=== PATIENT | female | born 1945 | race Caucasian/White ===

== ENCOUNTER 2019-09-29 15:00 | Emergency (ER) | payer MEDICARE, OTHER, SELFPAY ==
[2019-09-29 15:14] VITALS: BP 140/70; PULSE 84; RESP 15; TEMP 36.9; O2SAT 95; BMI 23.0
[2019-09-29 15:25] VITALS: BP 165/68; PULSE 71; RESP 18; O2SAT 96
--- NOTE | 2019-09-29 15:29 | XRR_ITS ---
PROCEDURE INFORMATION: Exam: XR Chest, 1 View Exam date and time: 09/29/2019 4:11 PM Age: 74 years old Clinical indication: Other: Weakness; Additional info: Weak TECHNIQUE: Imaging protocol: XR of the chest Views: 1 view. COMPARISON: CR Chest 1 [place] [id number] 02/13/2016 9:03 PM FINDINGS: There is haziness in the retrocardiac region. This could represent infiltrate. A standard PA and lateral radiograph is recommended. The right lung is clear. There is no pleural effusion or pneumothorax. The heart size is normal. XR/XR chest 1V portable [id number] IMPRESSION: Haziness in the retrocardiac region. This could represent infiltrate. A standard PA and lateral radiograph is recommended when medically feasible
--- NOTE | 2019-09-29 15:29 | ECG_ITS ---
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 Measurements Intervals [place] Rate: 65 P: 75 ND: 164 QRS: -32 QRSD: 102 T: 38 QT: 425 QTc: 444 Interpretive Statements SINUS RHYTHM LEFT AXIS DEVIATION [QRS AXIS < -30] VOLTAGE CRITERIA FOR LVH [MEETS CRITERIA IN ONE OF: R(aVL), S(V1), R(V5), R(V5/V6)+S(V1)] NONSPECIFIC ST & T-WAVE ABNORMALITY Compared to ECG 02/13/2016 19:33:20 Left ventricular hypertrophy now present T-wave abnormality now present Myocardial infarct finding no longer present Electronically Signed On 09-29-2019 22:03:43 CDT by Erich Meeks M.D. [email or web address]/[id number] f
--- NOTE | 2019-09-29 15:30 | ED_ITS ---
Documented by User: Mary Kate Oliver MD 10/02/19 13:17 HPI - Weakness General: Chief complaint: Weakness Stated complaint: body aches, fatigue, weakness Time Seen by Provider: 09/29/19 15:23 Source: patient and RN notes reviewed History of Present Illness: HPI Narrative: 74-year-old female complains of acute onset of generalized weakness this morning just prior to arrival. She is usually very active and was taking a bath and could barely get out of the bathtub. She states her arms and legs just felt weak. No confusion no slurred speech no headache. No dysuria nausea vomiting or diarrhea. She has had no recent fever cough or cold symptoms no loss of taste or smell and no known exposure to anybody with COVID-19. MD Complaint: generalized weakness Associated symptoms: Denies chest pain, chills, easy bruising, fever(s), headache(s), nausea or vomiting Review of Systems General: Reports: 10 or more systems reviewed and unremarkable except in HPI and below Const: Denies: fever(s) or chills Eyes: Denies: change in vision ENMT: Denies: throat pain Card: Denies: chest pain Resp: Denies: dyspnea GI: Denies: abdominal pain, nausea, vomiting or change in bowel habits : Denies: difficulty voiding Musc: Denies: muscle weakness Skin/Breast: Denies: rash Neuro: Denies: headache(s) Psych: Denies: hopelessness or suicidal ideation Endo: Denies: polyuria [employer]/Lymph: Denies: easy bruising or easy bleeding All/Imm: Denies: urticaria PFSH ED PFSH: Social History (Updated 09/29/19 @ 15:21 by Rico Ponce RN) Smoking and tobacco status: never smoked Alcohol intake: never Substance/Drug Use: never Physical Exam Const: COMMON NORMALS: no acute distress, patient oriented x3, alert and well nourished OTHER: Appears younger than stated age HENMT: COMMON NORMALS: normocephalic and Normal external nose present HEAD & SCALP: normocephalic NOSE: Normal external nose present MOUTH: no trismus Eye: COMMON NORMALS: EOMs intact bilaterally and conjunctivae normal CONJUNCTIVA: Yes conjunctivae normal Neck/C-Spine: COMMON NORMALS: full ROM, no lymphadenopathy and supple CERVICAL SPINE: Yes cervical ROM normal Lymph: LYMPHATIC: no lymphadenopathy noted Resp: COMMON NORMALS: normal respiratory effort, No retractions, No use of accessory muscles and clear to auscultation bilaterally EFFORT & INSPECTION: Yes able to speak in complete sentences AUSCULTATION: clear to auscultation bilaterally Cardio: COMMON NORMALS: regular rate and regular rhythm RATE: regular rate RHYTHM: regular rhythm GI: COMMON NORMALS: Normal to inspection, nondistended, normoactive bowel sounds present, Soft to palpation, non-tender and no masses INSPECTION: Yes normal to inspection AUSCULTATION: Yes normoactive bowel sounds PALPATION: Yes Soft to palpation, No Guarding due to palpation present (GI) and No Rigid due to palpation Back/Pelvis: OTHER: Normal range of motion Extremity: GENERAL: Yes normal exam except as noted Neuro: COMMON NORMALS: patient oriented x3 and CN's II-XII intact bilaterally SENSORIUM/ORIENTATION: Yes alert SPEECH: speech normal Psych: COMMON NORMALS: mental status grossly normal Skin: COMMON NORMALS: no rashes or lesions noted GENERAL SKIN EXAM: no rashes or lesions noted Course Vital Signs: Vital signs: Vital Signs Temperature 98.9 F 09/29/19 18:48 Pulse Rate 71 09/29/19 18:48 Respiratory Rate 16 09/29/19 18:48 Blood Pressure 179/73 09/29/19 18:48 Pulse Oximetry 97 09/29/19 18:48 MDM - Weakness MDM Narrative: Medical decision making narrative: Acute onset generalized weakness just prior to arrival today. Initial EKG is unremarkable. First troponin is 9 will need second troponin still awaiting urine. She denies any chest pain pressure heaviness or other symptoms usually associated with [place] Lab Data: Attestation: I reviewed the patient's lab results. Labs: Lab Results 09/29/19 09/29/19 09/29/19 Range/Units 15:34 15:34 15:34 WBC 5.7 (4.0-10.0) 10^3/ uL RBC 4.26 (4.1-5.3) 10^6/u L Hgb 12.9 (11.5-15.3) g/dL Hct 39.8 (37.0-47.0) % MCV 93.4 (81-99) fL MCH 30.3 (28.0-34.0) pg MCHC 32.4 (30.0-36.0) g/dL RDW 11.0 L (12.1-15.1) % Plt Count 238 (130-400) 10^3/c mm MPV 10.3 (7.4-10.4) fL Neut % (Auto) 59.0 % Lymph % (Auto) 32.4 % Thayer % (Auto) 8.0 % Eos % (Auto) 0.2 % Baso % (Auto) 0.2 % Neut # (Auto) 3.39 (1.8-7.7) 10^3/u L Lymph # (Auto) 1.9 (0.8-4.8) 10^3/u L Thayer # (Auto) 0.5 (0.2-0.9) 10^3/u L Eos # (Auto) 0.0 (0.0-0.8) 10^3/u L Baso # (Auto) 0.0 (0.0-0.1) 10^3/u L Nucleated RBC % (a uto) 0 % Nucleated RBCs # 0.0 /100WBC Sodium 140 (136-145) mmol/L Potassium 3.2 L (3.5-5.1) mmol/L Chloride 101 (98-107) mmol/L Carbon Dioxide 28 (22-29) mmol/L Anion Gap 14.2 (5-19) BUN 21 (8-23) mg/dL Creatinine 0.8 (0.5-0.9) mg/dL Glucose 166 H (65-115) mg/dL Calculated Osmolal ity 290 (285-295) mOsm/k g Calcium 9.1 (8.5-10.5) mg/dL Magnesium (1.7-2.3) mg/dL Total Bilirubin 0.4 (0.15-1.2) mg/dL AST 19 (0-32) U/L ALT 12 (0-33) U/L Alkaline Phosphata se 76 (35-105) IU/L Troponin T Gen 5 n g/L 9 (0-10) ng/L Troponin T 120 Min deering (0-10) ng/L Delta Troponin T (0-10) ABS# Total Protein 7.2 (6.6-8.7) g/dL Albumin 4.2 (3.5-5.2) g/dL Globulin 3.0 (1.3-4.6) g/dL Urine Color (Yellow) Urine Appearance (CLEAR) Urine pH (5-7) Ur Specific Gravit y (1.005-1.030) Urine Protein (Negative) Urine Glucose (UA) (Normal) Urine Ketones (Negative) Urine Blood (Negative) Urine Nitrate (Negative) Urine Bilirubin (NEGATIVE) Urine Urobilinogen (Negative) mg/dL Ur Leukocyte Isabel ase (Negative) Urine RBC (0-2) /hpf Urine WBC (0-5) /hpf Ur Squamous Epith Cells (0-5) Amorphous Sediment Urine Bacteria (NONE) Urine Mucus 09/29/19 09/29/19 09/29/19 Range/Units 15:57 17:16 17:16 WBC (4.0-10.0) 10^3/ uL RBC (4.1-5.3) 10^6/u L Hgb (11.5-15.3) g/dL Hct (37.0-47.0) % MCV (81-99) fL MCH (28.0-34.0) pg MCHC (30.0-36.0) g/dL RDW (12.1-15.1) % Plt Count (130-400) 10^3/c mm MPV (7.4-10.4) fL Neut % (Auto) % Lymph % (Auto) % Thayer % (Auto) % Eos % (Auto) % Baso % (Auto) % Neut # (Auto) (1.8-7.7) 10^3/u L Lymph # (Auto) (0.8-4.8) 10^3/u L Thayer # (Auto) (0.2-0.9) 10^3/u L Eos # (Auto) (0.0-0.8) 10^3/u L Baso # (Auto) (0.0-0.1) 10^3/u L Nucleated RBC % (a uto) % Nucleated RBCs # /100WBC Sodium (136-145) mmol/L Potassium (3.5-5.1) mmol/L Chloride (98-107) mmol/L Carbon Dioxide (22-29) mmol/L Anion Gap (5-19) BUN (8-23) mg/dL Creatinine (0.5-0.9) mg/dL Glucose (65-115) mg/dL Calculated Osmolal ity (285-295) mOsm/k g Calcium (8.5-10.5) mg/dL Magnesium 1.9 (1.7-2.3) mg/dL Total Bilirubin (0.15-1.2) mg/dL AST (0-32) U/L ALT (0-33) U/L Alkaline Phosphata se (35-105) IU/L Troponin T Gen 5 n g/L (0-10) ng/L Troponin T 120 Min deering 7.61 (0-10) ng/L Delta Troponin T -1.39 L (0-10) ABS# Total Protein (6.6-8.7) g/dL Albumin (3.5-5.2) g/dL Globulin (1.3-4.6) g/dL Urine Color Yellow (Yellow) Urine Appearance Sl hazy (CLEAR) Urine pH 5 (5-7) Ur Specific Gravit y 1.005 (1.005-1.030) Urine Protein Neg (Negative) Urine Glucose (UA) Norm (Normal) Urine Ketones Negative (Negative) Urine Blood Neg (Negative) Urine Nitrate Negative (Negative) Urine Bilirubin Neg (NEGATIVE) Urine Urobilinogen Norm (Negative) mg/dL Ur Leukocyte Isabel ase 2+ H (Negative) Urine RBC None (0-2) /hpf Urine WBC 15-25 H (0-5) /hpf Ur Squamous Epith Cells 15-25 H (0-5) Amorphous Sediment Not Reportable Urine Bacteria 2+ H (NONE) Urine Mucus 1+ Imaging Data^: CXR: Attestation: I personally reviewed and interpreted this imaging study as follows: My impression: No change from prior study normal EKG Data^: EKG 1: Attestation: I personally reviewed and interpreted this EKG as follows: EKG interpretation date: 09/29/19 EKG interpretation time: 15:46 Interpretation: Sinus rhythm rate 65 left axis deviation, nonspecific ST changes Discharge Plan Discharge Patient Disposition: Home, Self-Care Clinical Impression: Spell of generalized weakness Condition: Stable Prescriptions: New cefdinir 300 mg capsule 300 mg PO Q12H 10 Days Qty: 20 RF: 0 No Action Aspir-81 81 mg Tablet,Delayed Release (Dr/Ec) See Rx Instructions .ROUTE .COMPLEX RF: 0 alprazolam 0.5 mg tablet 0.5 mg PO TID PRN (Reason: unknown) RF: 0 amlodipine 10 mg tablet 5 mg PO DAILY RF: 0 lisinopril 10 mg tablet 10 mg PO BID RF: 0 metoprolol succinate 25 mg tablet extended release 24 hr 25 mg PO BID RF: 0 potassium gluconate 595 mg (99 mg) Tablet 595 mg PO DAILY RF: 0 lysine See Rx Instructions .ROUTE .COMPLEX RF: 0 magnesium 1 tab PO DAILY RF: 0 Discharge Orders: Discharge Order (Routine); Ordered 09/29/19 Ordered By: Selene Cronin Referrals: David Carter Jr, MD [Primary Care Provider] - 1-3 days Discharge Diet: Advance as tolerated Discharge Activity: Increase activity as tolerated Patient Instructions: Weakness (Generalized) Activity Restrictions/Additional Instructions: Please return to the ER immediately for any of the signs or symptoms listed on your discharge instruction sheets, worsening/changing of your symptoms, you are not getting better as quickly as expected, or for ANY other cause or concerns. A definite cause for your spell of generalized weakness has not been determined. If your symptoms return or you develop any new symptoms please return to the ER immediately for recheck. Try to get into see Dr. Carter sooner than your already scheduled appointment. Discharge Date/Time: 09/29/19 18:52 Sign Out Sign Out Data: Patient Sign Out occurred on 09/29/19 at 17:16. Patient's care was discussed, and care was transferred from Mary Kate Oliver MD to Selene Cronin. 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 Comprehensive Documented by User: Selene Cronin 09/29/19 18:35 HPI - Weakness General: Chief complaint: Weakness Stated complaint: body aches, fatigue, weakness Time Seen by Provider: 09/29/19 15:23 PFSH ED PFSH: Social History (Updated 09/29/19 @ 15:21 by Rico Ponce RN) Smoking and tobacco status: never smoked Alcohol intake: never Substance/Drug Use: never Course Vital Signs: Vital signs: Vital Signs Temperature 98.9 F 09/29/19 18:48 Pulse Rate 71 09/29/19 18:48 Respiratory Rate 16 09/29/19 18:48 Blood Pressure 179/73 09/29/19 18:48 Pulse Oximetry 97 09/29/19 18:48 MDM - Weakness MDM Narrative: Medical decision making narrative: 1814 -patient is completely asymptomatic at this time. She states her symptoms have completely resolved and she is ready to go home. I reviewed with her and other than a period of generalized weakness that resolved I cannot determine what her symptoms could be caused by. Her urine is contaminated but she does not have symptoms such as urinary frequency, urgency or dysuria. She has no back pain or chest pain. She has no headache, fever, cough, shortness of breath or any other focal symptom. The patient understands that this still could be something serious and she will need to be careful and try to stay out of the heat and keep cool. She agrees to try to get an appointment with Dr. Lizarraga for sooner than the as scheduled and she will also take the medication for a possible UTI as she really does not want to have a catheterized specimen performed. She agrees to return should her symptoms return or she develop any new symptoms. At this time though the patient has been up and walking the halls here and feels good and wants to be discharged. The patient has been warned but she is also been welcomed to return. Lab Data: Labs: Lab Results 09/29/19 09/29/19 09/29/19 Range/Units 15:34 15:34 15:34 WBC 5.7 (4.0-10.0) 10^3/ uL RBC 4.26 (4.1-5.3) 10^6/u L Hgb 12.9 (11.5-15.3) g/dL Hct 39.8 (37.0-47.0) % MCV 93.4 (81-99) fL MCH 30.3 (28.0-34.0) pg MCHC 32.4 (30.0-36.0) g/dL RDW 11.0 L (12.1-15.1) % Plt Count 238 (130-400) 10^3/c mm MPV 10.3 (7.4-10.4) fL Neut % (Auto) 59.0 % Lymph % (Auto) 32.4 % Thayer % (Auto) 8.0 % Eos % (Auto) 0.2 % Baso % (Auto) 0.2 % Neut # (Auto) 3.39 (1.8-7.7) 10^3/u L Lymph # (Auto) 1.9 (0.8-4.8) 10^3/u L Thayer # (Auto) 0.5 (0.2-0.9) 10^3/u L Eos # (Auto) 0.0 (0.0-0.8) 10^3/u L Baso # (Auto) 0.0 (0.0-0.1) 10^3/u L Nucleated RBC % (a uto) 0 % Nucleated RBCs # 0.0 /100WBC Sodium 140 (136-145) mmol/L Potassium 3.2 L (3.5-5.1) mmol/L Chloride 101 (98-107) mmol/L Carbon Dioxide 28 (22-29) mmol/L Anion Gap 14.2 (5-19) BUN 21 (8-23) mg/dL Creatinine 0.8 (0.5-0.9) mg/dL Glucose 166 H (65-115) mg/dL Calculated Osmolal ity 290 (285-295) mOsm/k g Calcium 9.1 (8.5-10.5) mg/dL Magnesium (1.7-2.3) mg/dL Total Bilirubin 0.4 (0.15-1.2) mg/dL AST 19 (0-32) U/L ALT 12 (0-33) U/L Alkaline Phosphata se 76 (35-105) IU/L Troponin T Gen 5 n g/L 9 (0-10) ng/L Troponin T 120 Min deering (0-10) ng/L Delta Troponin T (0-10) ABS# Total Protein 7.2 (6.6-8.7) g/dL Albumin 4.2 (3.5-5.2) g/dL Globulin 3.0 (1.3-4.6) g/dL Urine Color (Yellow) Urine Appearance (CLEAR) Urine pH (5-7) Ur Specific Gravit y (1.005-1.030) Urine Protein (Negative) Urine Glucose (UA) (Normal) Urine Ketones (Negative) Urine Blood (Negative) Urine Nitrate (Negative) Urine Bilirubin (NEGATIVE) Urine Urobilinogen (Negative) mg/dL Ur Leukocyte Isabel ase (Negative) Urine RBC (0-2) /hpf Urine WBC (0-5) /hpf Ur Squamous Epith Cells (0-5) Amorphous Sediment Urine Bacteria (NONE) Urine Mucus 09/29/19 09/29/19 09/29/19 Range/Units 15:57 17:16 17:16 WBC (4.0-10.0) 10^3/ uL RBC (4.1-5.3) 10^6/u L Hgb (11.5-15.3) g/dL Hct (37.0-47.0) % MCV (81-99) fL MCH (28.0-34.0) pg MCHC (30.0-36.0) g/dL RDW (12.1-15.1) % Plt Count (130-400) 10^3/c mm MPV (7.4-10.4) fL Neut % (Auto) % Lymph % (Auto) % Thayer % (Auto) % Eos % (Auto) % Baso % (Auto) % Neut # (Auto) (1.8-7.7) 10^3/u L Lymph # (Auto) (0.8-4.8) 10^3/u L Thayer # (Auto) (0.2-0.9) 10^3/u L Eos # (Auto) (0.0-0.8) 10^3/u L Baso # (Auto) (0.0-0.1) 10^3/u L Nucleated RBC % (a uto) % Nucleated RBCs # /100WBC Sodium (136-145) mmol/L Potassium (3.5-5.1) mmol/L Chloride (98-107) mmol/L Carbon Dioxide (22-29) mmol/L Anion Gap (5-19) BUN (8-23) mg/dL Creatinine (0.5-0.9) mg/dL Glucose (65-115) mg/dL Calculated Osmolal ity (285-295) mOsm/k g Calcium (8.5-10.5) mg/dL Magnesium 1.9 (1.7-2.3) mg/dL Total Bilirubin (0.15-1.2) mg/dL AST (0-32) U/L ALT (0-33) U/L Alkaline Phosphata se (35-105) IU/L Troponin T Gen 5 n g/L (0-10) ng/L Troponin T 120 Min deering 7.61 (0-10) ng/L Delta Troponin T -1.39 L (0-10) ABS# Total Protein (6.6-8.7) g/dL Albumin (3.5-5.2) g/dL Globulin (1.3-4.6) g/dL Urine Color Yellow (Yellow) Urine Appearance Sl hazy (CLEAR) Urine pH 5 (5-7) Ur Specific Gravit y 1.005 (1.005-1.030) Urine Protein Neg (Negative) Urine Glucose (UA) Norm (Normal) Urine Ketones Negative (Negative) Urine Blood Neg (Negative) Urine Nitrate Negative (Negative) Urine Bilirubin Neg (NEGATIVE) Urine Urobilinogen Norm (Negative) mg/dL Ur Leukocyte Isabel ase 2+ H (Negative) Urine RBC None (0-2) /hpf Urine WBC 15-25 H (0-5) /hpf Ur Squamous Epith Cells 15-25 H (0-5) Amorphous Sediment Not Reportable Urine Bacteria 2+ H (NONE) Urine Mucus 1+ EKG Data^: EKG 2: Attestation: I personally reviewed and interpreted this EKG as follows: EKG interpretation date: 09/29/19 EKG interpretation time: 17:47 Interpretation: Normal sinus rhythm at 65 beats a minute, nonspecific ST and T wave changes, unchanged from previous. Discharge Plan Discharge Patient Disposition: Home, Self-Care Clinical Impression: Spell of generalized weakness Condition: Stable Prescriptions: New cefdinir 300 mg capsule 300 mg PO Q12H 10 Days Qty: 20 RF: 0 No Action Aspir-81 81 mg Tablet,Delayed Release (Dr/Ec) See Rx Instructions .ROUTE .COMPLEX RF: 0 alprazolam 0.5 mg tablet 0.5 mg PO TID PRN (Reason: unknown) RF: 0 amlodipine 10 mg tablet 5 mg PO DAILY RF: 0 lisinopril 10 mg tablet 10 mg PO BID RF: 0 metoprolol succinate 25 mg tablet extended release 24 hr 25 mg PO BID RF: 0 potassium gluconate 595 mg (99 mg) Tablet 595 mg PO DAILY RF: 0 lysine See Rx Instructions .ROUTE .COMPLEX RF: 0 magnesium 1 tab PO DAILY RF: 0 Discharge Orders: Discharge Order (Routine); Ordered 09/29/19 Ordered By: Selene Cronin Referrals: David Carter Jr, MD [Primary Care Provider] - 1-3 days Discharge Diet: Advance as tolerated Discharge Activity: Increase activity as tolerated Patient Instructions: Weakness (Generalized) Activity Restrictions/Additional Instructions: Please return to the ER immediately for any of the signs or symptoms listed on your discharge instruction sheets, worsening/changing of your symptoms, you are not getting better as quickly as expected, or for ANY other cause or concerns. A definite cause for your spell of generalized weakness has not been determined. If your symptoms return or you develop any new symptoms please return to the ER immediately for recheck. Try to get into see Dr. Carter sooner than your already scheduled appointment. Discharge Date/Time: 09/29/19 18:52 Sign Out Sign Out Data: Patient Sign Out occurred on 09/29/19 at 17:16. Patient's care was discussed, and care was transferred from Mary Kate Oliver MD to Selene Cronin. 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 Comprehensive
[2019-09-29 15:43] LABS: Basophils % 0.2 %; Eosinophils % 0.2 %; Hematocrit 39.8 % (37.0-47.0); Hemoglobin 12.9 g/dL (11.5-15.3); Lymphocytes # 1.9 10^3/uL (0.8-4.8); Lymphocytes % 32.4 %; Mean Corpuscular HGB Conc 32.4 g/dL (30.0-36.0); Mean Corpuscular Hemoglobin 30.3 pg (28.0-34.0); Mean Corpuscular Volume 93.4 fL (81-99); Mean Platelet Volume 10.3 fL (7.4-10.4); Monocytes # 0.5 10^3/uL (0.2-0.9); Neutrophils # 3.39 10^3/uL (1.8-7.7); Nucleated Red Blood Cells % 0 %; Platelet Count 238 10^3/cmm (130-400); Red Blood Count 4.26 10^6/uL (4.1-5.3); White Blood Count 5.7 10^3/uL (4.0-10.0)
[2019-09-29 16:21] LABS: Troponin T (5th) Once 9 ng/L (0-10)
[2019-09-29 16:22] LABS: Alanine Aminotransferase 12 U/L (0-33); Albumin Level 4.2 g/dL (3.5-5.2); Alkaline Phosphatase 76 IU/L (35-105); Anion Gap 14.2 (5-19); Aspartate Amino Transferase 19 U/L (0-32); Blood Urea Nitrogen 21 mg/dL (8-23); Calcium 9.1 mg/dL (8.5-10.5); Carbon Dioxide 28 mmol/L (22-29); Chloride 101 mmol/L (98-107); Glucose 166 mg/dL (65-115); Osmolality Calculated 290 mOsm/kg (285-295); Potassium 3.2 mmol/L (3.5-5.1); Sodium 140 mmol/L (136-145); Total Bilirubin 0.4 mg/dL (0.15-1.2); Total Protein 7.2 g/dL (6.6-8.7)
[2019-09-29] MEDS: sodium chloride 0.9% 1,000 ML 999 ML IV (16:31)
[2019-09-29 16:36] VITALS: BP 168/70; PULSE 68; RESP 16; O2SAT 97
[2019-09-29 17:17] LABS: Bilirubin Urine Neg (NEGATIVE); Blood Urine Neg (Negative); Glucose Urine UA Norm (Normal); Ketones Urine Negative (Negative); Nitrate Urine Negative (Negative); Protein Urine Neg (Negative); Specific Gravity, Urine 1.005 (1.005-1.030); Urine Appearance SL Hazy (CLEAR); Urine Color Yellow (Yellow); pH Urine 5 (5-7)
[2019-09-29 17:18] LABS: Add Urine Microscopic? YES; Leukocyte Esterase Urine 2+ (Negative); Urobilinogen Urine Norm (Negative)
[2019-09-29 17:21] LABS: Add Urine Culture? No; Bacteria Urine 2+; Mucus Urine 1+; Squamous Epithelial Cell Urine 15-25 (0-5); WBC Urine 15-25 /hpf (0-5)
[2019-09-29 17:23] VITALS: BP 177/77; BP 182/73; BP 186/76; PULSE 71
[2019-09-29] MEDS: potassium chloride ER 10 mEq Tablet 40 MEQ PO (17:33)
[2019-09-29 17:47] VITALS: BP 186/76; PULSE 65; RESP 18; O2SAT 96
[2019-09-29 17:47] LABS: Magnesium 1.9 mg/dL (1.7-2.3)
[2019-09-29 17:48] LABS: Troponin 5 2HR 7.61 ng/L (0-10)
[2019-09-29 18:39] LABS: Troponin 5 2HR Delta -1.39 ABS# (0-10)
--- NOTE | 2019-09-29 18:39 | ECG_ITS ---
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 Measurements Intervals [place] Rate: 65 P: 91 VA: 168 QRS: -6 QRSD: 100 T: 67 QT: 403 QTc: 421 Interpretive Statements SINUS RHYTHM WITH SINUS ARRHYTHMIA NONSPECIFIC ST & T-WAVE ABNORMALITY Compared to ECG 02/13/2016 19:33:20 T-wave abnormality now present Myocardial infarct finding no longer present Left-axis deviation no longer present Electronically Signed On 09-29-2019 22:06:54 CDT by Erich Meeks M.D. [id number]
[2019-09-29 18:48] VITALS: BP 179/73; PULSE 71; RESP 16; TEMP 37.2; O2SAT 97
--- NOTE | 2019-09-29 22:39 | ECG_ITS ---
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 Measurements Intervals [place] Rate: 68 P: 50 CT: 148 QRS: -32 QRSD: 101 T: 23 QT: 370 QTc: 394 Interpretive Statements SINUS RHYTHM LEFT AXIS DEVIATION [QRS AXIS < -30] VOLTAGE CRITERIA FOR LVH [MEETS CRITERIA IN ONE OF: R(aVL), S(V1), R(V5), R(V5/V6)+S(V1)] NONSPECIFIC ST & T-WAVE ABNORMALITY, artifact Compared to ECG 02/13/2016 19:33:20 Left ventricular hypertrophy now present T-wave abnormality now present Myocardial infarct finding no longer present Electronically Signed On 09-29-2019 22:06:47 CDT by Erich Meeks M.D. [email or web address])/store/[id number] f
== END 2019-09-29 18:52 | disposition home or self-care (01) ==
PROVIDERS: Emergency Medicine; Emergency Provider Emergency Medicine; PCP Family Medicine
DX: R53.1 Weakness (principal); Z79.82 Long term (current) use of aspirin
CPT/HCPCS: 12345; 36415; 71045; 80053; 81001; 81003; 83735; 84484; 85025; 93005; 96360; 99284; J7030

== ENCOUNTER 2019-11-13 12:27 | Outpatient (CLI) | payer MEDICARE, OTHER, SELFPAY ==
--- NOTE | 2019-11-13 13:03 | MM_ITS ---
WS: [id number] BILATERAL SCREENING DIGITAL MAMMOGRAM WITH CAD HISTORY: SCREENING COMPARISON: 10/12/2018 and 09/25/2017 Bilateral CC and MLO views submitted. Computer aided detection analyzed. Breast composition: There are scattered areas of fibroglandular density. No suspicious masses, microc alcifications or architectural distortion. Benign calcifications in each breast. MM/[id number] IMPRESSION: BI-RADS: 2-Benign FOLLOW UP: 1 Year Follow-up
== END 2019-11-13 12:28 | disposition home or self-care (01) ==
LOC: RADSHAW 12:30
PROVIDERS: PCP Family Medicine; Visit Provider Family Medicine
DX: Z12.31 Encounter for screening mammogram for malignant neoplasm of breast (principal)
CPT/HCPCS: 77067

== ENCOUNTER 2020-11-25 11:13 | Outpatient (CLI) | payer MEDICARE, SELFPAY ==
--- NOTE | 2020-11-25 11:24 | MM_ITS ---
WS: [id number] BILATERAL SCREENING DIGITAL MAMMOGRAM WITH CAD HISTORY: SCREENING COMPARISON: 11/13/2019 and 10/12/2018 Bilateral CC and MLO views submitted. Computer aided detection analyzed. Breast composition: There are scattered areas of fibroglandular density. No suspicious masses, microc alcifications or architectural distortion. Bilateral calcifications. MM/[id number] IMPRESSION: BI-RADS: 2-Benign FOLLOW UP: 1 Year Follow-up
== END 2020-11-25 11:14 | disposition home or self-care (01) ==
LOC: RADSHAW 11:18
PROVIDERS: PCP Nurse Practitioner Family; Visit Provider Nurse Practitioner Family
DX: Z12.31 Encounter for screening mammogram for malignant neoplasm of breast (principal)
CPT/HCPCS: 77067

== ENCOUNTER 2022-07-14 07:31 | Outpatient (CLI) | payer MEDICARE, SELFPAY ==
[2022-07-14 07:36] VITALS: BMI 22.6
--- NOTE | 2022-07-14 07:46 | ECG_ITS ---
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 Interpretive Statements NAME OF STUDY: LEXISCAN SESTAMIBI STRESS TEST INDICATION: [Chest Pain] Procedure: At the baseline, the blood pressure was 186/80 mmHg with a heart rate of 55 bpm. The electrocardiogram showed normal bradycardia, normal axis with normal ST and T's. The Lexiscan was infused over a period of 20 seconds. A total of 0.4 mg of Lexiscan was infused. The stress phase was continued for a total of 5 minutes. Heart rate was at the end of stress phase was 65 bpm and a blood pressure of 190/80 mmHg. The EKG at the peak infusion revealed normal sinus rhythm with no significant ST-T wave changes. Sestamibi was injected 20 seconds after the Lexiscan infusion. Blood pressure at the end of recovery phase was 187/83 mmHg with a heart rate of 71 bpm. Conclusion: 1. Normal EKG response to Lexiscan infusion 2. No Lexiscan induced chest pain or cardiac arrhythmia. 3. Normal blood pressure and heart rate response. 4. Sestamibi/sestamibi perfusion scan pending; see separate report. Electronically Signed On 07-30-2022 21:05:32 CDT by David Woodward M.D. [id number]
--- NOTE | 2022-07-14 08:00 | NMCV_ITS ---
NM rafi perf SPECT r/s* [id number] Deb Willis Age: 77 Gender: F : 1945 Exam Date: 07/14/2022 08:11 Ordering Phys: Genesis Chacon NP Technologist: GEO Chavira Exam Location: [facility] Indications: HYPERTENSION STRESS TEST [facility] IMAGE PROTOCOL Rest/Stress 1 Lexiscan Day Radiopharmaceutical Dose (mCi) Administration Site Administered by Rest: Tc-99m 10.9 IV GEO Lees Sestamibi Stress:Tc-99m 32.2 IV GEO Lees Sestamibi Rest: 14-Jul-2022 60 Discovery 630 Stress: 14-Jul-2022 30 Discovery 630 0.4mg Lexiscan. Images obtained in supine and prone position. SPECT RESULTS Technical Quality: Excellent Raw Data Analysis: Normal Image Corrections: No attenuation or motion correction applied Summed Stress Score: 0 Summed Rest Score: 0 Summed Difference Score: 0 PERFUSION FINDINGS SPECT images demonstrate homogeneous tracer distribution throughout the myocardium. FUNCTIONAL RESULTS (calculated via Gated SPECT) Stress Image LV EF (%): 78 Stress EDV (mL):88 TID: 1.04 Stress ESV (mL):19 FUNCTIONAL FINDINGS: There is normal left ventricular systolic function. IMPRESSIONS 1. Normal myocardial perfusion imaging with no evidence of ischemia 2. LV systolic function is normal David Woodward MD (Electronically Signed) Final Date: 14 Jul 2022 17:05 S
[2022-07-14] MEDS: regadenoson 0.4 Mg/5 ml Syringe IVP (08:44)
[2022-07-14 09:07] VITALS: BP 187/83; PULSE 67
== END 2022-07-14 07:32 | disposition home or self-care (01) ==
PROVIDERS: PCP Nurse Practitioner Family; Visit Provider Nurse Practitioner Family
DX: I10 Essential (primary) hypertension (principal)
CPT/HCPCS: 36415; 78452; 93017; 96374; A9500; J2785

== ENCOUNTER → 2024-08-06 08:18 | Outpatient (BNVA) | payer MEDICARE, SELFPAY | PROVIDERS: PCP Nurse Practitioner Family; Visit Provider Internal Medicine Cardiovascular Disease | DX: I10 Essential (primary) hypertension (principal); Z79.82 Long term (current) use of aspirin | CPT/HCPCS: 99214 ==

== ENCOUNTER → 2025-02-11 16:26 | Outpatient (BNVA) | payer MEDICARE, SELFPAY | PROVIDERS: PCP Nurse Practitioner Family; Visit Provider Internal Medicine Cardiovascular Disease | DX: I10 Essential (primary) hypertension (principal) | CPT/HCPCS: 99214 ==